=== PATIENT | female | born 1985 ===

== ENCOUNTER 2017-04-15 08:13 | Emergency (ER) | payer MEDICAID ==
--- NOTE | 2017-04-15 10:29 | OBHP ---
Datetime: 04/15/2017 08:54 IP Adm Impression: Term, intrauterine ; No Active Labor IP Admit Plan: Observation/Evaluation; Discharge home Admit Comment, IP Provider: CC: ctx HPI: 31 YO @ 39wks (EDC 04/22) presents to [facility] for ctx. Pt states that she has felt increase ctx since Sunday but this morning around 2AM her ctx became more intense and more frequent. Pt rates her pain as a 4/10. Last sexual activity was 48 hrs ago, no LOF, good movement and no VB. Yony es n/v/d/c, fevers, chills, chest pain, dyspnea, headaches. MD: [facility]: denies hx of STIs, normal thus far-no complications PMH: denies SurgH: denies FH: denies SH: lives with partner, denies ETOH, Smoking and illict drug use Allergies: NKDA Meds: PNV U/S (02/2017): breech, Bedside sonogram today - Vertex presentation PE Vitals: wnl GEN: NAD HEENT: EOMI Cardio: S1S2 no murmurs Resp: vesicular breathing b/l Abdomen: gravid, NT Ext: no edema Vag Ex: /-3 Bedside u/s: baby is vertex FM: 130, ctx Q4-7 mins A/P: 31 YO @ 39.0wks IUP presents with early labor. HIV neg, RPR neg, HepB neg, rubella immune, G/C neg, GBS neg. -will continue monitor -reasess in 1hr to see labor progress Pt seen and re-evaluated again 1hr alter, ctx are spaced apart curretly Q6-9 mins and pain is stab le at 4/10. Pt was re-examined, cervix remains high, poterior and still /-3. Baby is moving well, and strip is reactive. Will d/c home with labor precations. Pt has follow up with MD on 04/17/17. Pt understands and agrees with plan. Pt seen and examined with attending Dr. Jarret Barnes, PGY I Pt was seen and examined with resident and I agree with the above. Pelvic Type - PN: Adequate Extremities - PN: Normal Abdomen - PN: Normal Back - PN: Not Done Breast - PN: Not Done Lungs - PN: Normal Heart - PN: Normal Thyroid - PN: Not Done Neurologic - PN: Normal HEENT - PN: Normal General - PN: Normal Presentation-Admit: Vertex FHR - Baseline A Provider: 130 Pool Provider: Negative EGA AdmitDate IP: 39.0 Vital Signs Provider: Reviewed; Within Normal Limits IP Chief Complaint: Uterine contractions; Maternal discomfort NICHD Variability Prov Fetus A: Moderate 6-25bpm NICHD Accel Fetus A IP Provider: 15X15 FHR Category Provider Fetus A: Category I Dilatation, Provider: 1 Effacement, Provider: 70 Station, Provider: -3 Genitourinary Exam: Normal DTRs - PN: Not Done
[2017-04-15 14:38] VITALS: BP 109/64; PULSE 71; O2SAT 99
== END 2017-04-15 10:00 | disposition home or self-care (01) ==
LOC: H.EROB2 08:13 → H.L&D 08:34 → H.EROB2 10:00
DX: O47.1 False labor at or after 37 completed weeks of gestation (principal); Z3A.39 39 weeks gestation of pregnancy; O26.93 Pregnancy related conditions, unspecified, third trimester; R10.2 Pelvic and perineal pain

== ENCOUNTER 2017-04-15 15:48 | Inpatient (IN) | payer MEDICAID ==
[2017-04-15 16:08] VITALS: BMI 28.1
[2017-04-15] MEDS ORDERED: Oxytocin 30 units/LR 500ML 30 U/500 ML BAG IV ONE (16:09)
[2017-04-15] MEDS ORDERED: Lactated Ringer's 1,000 ML IV SCH ×2 (16:15)
[2017-04-15 16:37] LABS: BASO % 0.5 % (0.0-2.0); EOS % 0.4 % (0.0-4.0); LYMPH # 2.2 K/uL (1.0-4.3); LYMPH % 24.8 % (20.0-40.0); MEAN CELL VOLUME 90.2 fl (81.0-99.0); MEAN CORPUSCULAR HEMOGLOBIN 30.5 pg (27.0-31.0); MEAN CORPUSCULAR HGB CONC 33.8 g/dL (33.0-37.0); MEAN PLATELET VOLUME 10.5 fl (7.2-11.7); MONO # 0.9 K/uL (0.0-0.8); MONO % 10.6 % (0.0-10.0); NEUT # 5.6 K/uL (1.8-7.0); NEUT % 63.7 % (50.0-75.0); NRBC % 0.2 % (0.0-0.0); RBC 4.26 Mil/uL (3.80-5.20); RED CELL DISTRIBUTION WIDTH 13.9 % (11.5-14.5); WHITE BLOOD COUNT 8.7 K/uL (4.8-10.8)
[2017-04-15] MEDS ORDERED: Lidocaine 1% Inj (20ml) ONE (16:49)
[2017-04-15] MEDS ORDERED: Oxycodone/Acetaminophen 5/325 mg Tab PO PRN ×4 (16:59→20:13)
[2017-04-15] MEDS ORDERED: Benzocaine/Menthol SPRAY TOP PRN ×2 (16:59→20:13)
--- NOTE | 2017-04-15 17:26 | OBADHP ---
Datetime: 04/15/2017 16:10 Admit Comment, IP Provider: CC: ctx HPI: 31 YO @ 39wks (EDC 04/22) presents to [facility] for ctx. Pt was seen this AM, and states that since she d/c from the hospital her ctx worsened, became more painful and more frequent. Ctx are curr ently 1010 in intensity. Last sexual activity was 48 hrs ago, no LOF, good movement and no VB. Denies n/v/d/c, fevers, chills, chest pain, dyspnea, headaches. MD: [facility]: denies hx of STIs, normal thus far-no complications PMH: denies SurgH: denies FH: denies SH: lives with partner, denies ETOH, Smoking and illict drug use Allergies: NKDA Meds: PNV U/S (02/2017): breech Bedside sonogram today - Vertex presentation PE Vitals: wnl GEN: NAD HEENT: EOMI Cardio: S1S2 no murmurs Resp: vesicular breathing b/l Abdomen: gravid, NT Ext: no edema Vag Ex: Bedside u/s: baby is vertex FM: 145, reactive A/P: 31 YO @ 39.0wks IUP presents with active labor. HIV neg, RPR neg, HepB neg, rubella immune, G/C neg, GBS neg. -will admit pt -start labor protocal -IV fluids -NPO -continue FM Pt seen and examined with attending Dr. Jarret Barnes, PGY I Attending Note: Pt was examined with resident and I agree with the above. Pelvic Type - PN: Adequate Extremities - PN: Normal Abdomen - PN: Normal Back - PN: Not Done Breast - PN: Not Done Lungs - PN: Normal Heart - PN: Normal Thyroid - PN: Not Done Neurologic - PN: Normal HEENT - PN: Normal General - PN: Normal FHR - Baseline A Provider: 140 Membranes, Provider: Ruptured Vital Signs Provider: Reviewed; Within Normal Limits IP Chief Complaint: Uterine contractions; Maternal discomfort NICHD Variability Prov Fetus A: Moderate 6-25bpm NICHD Accel Fetus A IP Provider: 15X15 FHR Category Provider Fetus A: Category I Dilatation, Provider: 7 Effacement, Provider: 100 Station, Provider: 0 Genitourinary Exam: Normal DTRs - PN: Not Done EGA AdmitDate IP: 39.0 IP Adm Impression: Term, intrauterine ; Active labor IP Admit Plan: Admit to unit; Initiate labor protocol Datetime: 04/15/2017 08:54 Presentation-Admit: Vertex Pool Provider: Negative
[2017-04-16 06:54] LABS: BASO # 0.1 K/uL (0.0-0.2); BASO % 0.5 % (0.0-2.0); EOS % 0.2 % (0.0-4.0); HEMOGLOBIN 11.6 g/dL (12.0-16.0); LYMPH # 1.7 K/uL (1.0-4.3); LYMPH % 15.4 % (20.0-40.0); MEAN CELL VOLUME 90.5 fl (81.0-99.0); MEAN CORPUSCULAR HEMOGLOBIN 30.8 pg (27.0-31.0); MEAN CORPUSCULAR HGB CONC 34.1 g/dL (33.0-37.0); MEAN PLATELET VOLUME 9.9 fl (7.2-11.7); MONO # 0.8 K/uL (0.0-0.8); NEUT # 8.4 K/uL (1.8-7.0); NEUT % 76.9 % (50.0-75.0); NRBC % 0.2 % (0.0-0.0); RBC 3.78 Mil/uL (3.80-5.20); RED CELL DISTRIBUTION WIDTH 13.9 % (11.5-14.5); WHITE BLOOD COUNT 10.9 K/uL (4.8-10.8)
--- NOTE | 2017-04-16 10:21 | OBDS ---
DELIVERY PERSONNEL Delivery Doctor: Cecil Wheat MD Aged Or Disabled Carer: Irina Ramsay RN [email or web address] Resident: dr arroyo MATERNAL INFORMATION Delivery Anesthesia: None Medications in Delivery: pitocin 30 units after placenta delivery Estimated Blood Loss (ml): 150 Placenta Cultured: No Maternal Complications: None Provider Comments: 31 YO @ 39wks IUP presented in active labor. Pt underwent an uncomplicated S NVD of a viable male . Baby was delivered in a controlled environment, head was delivered first , cord x 1. Baby was suctioned, cords were clamped and cut. Baby with weight of 3215g, scores o f 9 and 9. 1st degree periurethral lac was noted and repaired with 2 - 0 chromic. EBL was 150ml. Moth er and baby tolerated the procedure well. Talita Cameron, PGY I LABOR SUMMARY EDC: 04/22/2017 00:00 No. Babies in Womb: 0 Attempted: No Labor Anesthesia: None LABOR INFORMATION Onset of Labor: 04/14/2017 02:00 Complete Dilatation: 04/15/2017 16:30 Group B Beta Strep: Negative Steroids Given: None MEMBRANES Membranes Rupture Method: Spontaneous Rupture of Membranes: 04/15/2017 16:10 Length of Rupture (hrs): 0.50 Amniotic Fluid Color: Clear Amniotic Fluid Amount: Moderate STAGES OF LABOR Stage 1 hrs: 37 Stage 1 min: 30 Stage 2 hrs: 0 Stage 2 min: 10 Stage 3 hrs: 0 Stage 3 min: 6 Total Time in Labor hrs: 37 Total Time in Labor min: 46 VAGINAL DELIVERY Episiotomy: None Laceration Extension: First Degree Laceration Type: Periurethral Laceration Repair: Yes Initial Vag Sponge Count: 5 Final Vag Sponge Count: 5 Initial Vag Sharps Count: 1 Final Vag Sharps Count: 1 Sponge Count Correct: Yes Sharps Count Correct: Yes BABY A INFORMATION Delivery Date/Time: 04/15/2017 16:40 Method of Delivery: Vaginal Born in Route : Yes : N/A Forceps: N/A Vacuum Extraction: N/A Shoulder Dystocia : No SHOULDER DYSTOCIA BABY A Delivery Date/Time: 04/15/2017 16:40 PRESENTATION/POSITION BABY A Presentation: Cephalic Cephalic Presentation: Vertex Vertex Position: Left Occipital Anterior Breech Presentation: N/A PLACENTA INFORMATION BABY A Placenta Delivery Time : 04/15/2017 16:46 Placenta Method of Delivery: Spontaneous Placenta Status: Delivered SCORES BABY A Heart Rate 1 min: >100 bpm Resp Effort 1 min: Good Cry Reflex Irritability 1 min: Cough or Sneeze or Pulls Away Muscle Tone 1 min: Active Motion Color 1 min: Body Fleming-Neon, Extremities Blue Resuscitation Effort 1 min: Tactile Stimulation SCORE 1 MIN: 9 Heart Rate 5 min: >100 bpm Resp Effort 5 min: Good Cry Reflex Irritability 5 min: Cough or Sneeze or Pulls Away Muscle Tone 5 min: Active Motion Color 5 min: Body Fleming-Neon, Extremities Blue SCORE 5 MIN: 9 Heart Rate 10 min: >100 bpm Resp Effort 10 min: Good Cry Reflex Irritability 10 min: Cough or Sneeze or Pulls Away Muscle Tone 10 min: Active Motion Color 10 min: Completely Fleming-Neon SCORE 10 MIN: 10 INFANT INFORMATION BABY A Gestational Age at Delivery: 39.0 Gestational Status: Term Infant Outcome : Liveborn Condition : Stable Infant Sex: Male IDENTIFICATION/MEDS BABY A ID Band Number: [id number] ID Band Location: Left Leg; Left Arm WEIGHT/LENGTH BABY A Infant Birthweight (gms): 3215 Infant Weight (lb): 7 Infant Weight (oz): 1 CORD INFORMATION BABY A No. Cord Vessels: 3 Nuchal Cord : Around Neck x1, Loose Nuchal Cord Other: no True Knot: no Cord pH Baby Arterial: no Infant Cord pH Baby Venous: no Cord Blood Taken: Yes Banking/Donate Info: no Infant Suction: Mouth; Nose ASSESSMENT BABY A Complications: None Physical Findings at Delivery: Within Normal Limits Respirations: Appears Normal Bsa Officer/ALS Called : Yes Care By: dr jung / lucien willingham rnc Transferred To: Remains with Mother
--- NOTE | 2017-04-16 10:51 | OBPPN ---
Datetime: 04/16/2017 06:21 PP Pain Prov: Within normal limits PP Nausea Prov: Denies PP Flatus Prov: Yes PP BM Prov: No PP Breasts Prov: Normal PP Heart Prov: Normal PP Lungs Prov: Normal PP Abdomen/Uterus Prov: Normal PP Lochia Prov: Normal PP CVA Tenderness Prov: Normal PP Extremities Prov: Normal PP Impression Prov: Normal progression PP Plan Prov: Continue present management; consult PP Progress Note Prov: PPD 1 31 y/o female now on PPD 1 seen and examined at bedside this morning. No overnight events. Re ports pain is controlled with pain medications. Pt reports passing gas per rectum but no BM yet. Void ing freely w/o blood noted. Ambulating well w/o dizziness. Lochia is similar to menses volume. Pt is the baby w/o difficulty. Denies nausea, vomiting, fever, chills, chest pain or calf сергей n. Parents do not desire circumcision for the baby. Physical Exam: General: A_O, resting comfortably in bed, NAD HEENT: oral mucosa moist. Lungs: CTA B/L, no wheezing, rhonchi or rales CVS: RRR, S1, S2 ABD: ND, +BS, firm fundus @ umbilical level. Soft, appropriate TTP. EXT: no edema, negative Michael's sign, Neuro/psych: AAOX3. Assessment: 31 y/o female now doing well on PPD 1 Plan: OOB w/ caution Regular diet Percocet and Ibuprofen for pain management Colace 100 mg po bid for constipation consults for Encourage and ambulation Anticipate discharge tomorrow Sultan Last, pgy-1 Case d/w on-call OB hospitalist The attending addendum: Patient seen and examined by me agree with above assessment and plan. Vital Signs Provider PP: Reviewed
--- NOTE | 2017-04-17 10:46 | OBDCSUM ---
Datetime: 04/17/2017 06:54 Discharged to, Provider: Home Follow up at, Provider: your doctor Disch Instr Activity: Normal activity; May be up to bathroom; May be up for meals; May Shower Disch Instr Diet: Regular Discharge Instructions, Provider: Routine instructions given Discharge Diagnosis, Provider: Term Delivered Discharge Time: 04/17/2017 11:00 Follow up in weeks, Provider: in 6 weeks Disch Referrals: None Contraception discussed, Prov: Yes Disch Activity Restrictions: No lifting; Minimize stair-climbing; No sexual activity; Nothing in vag mouna - [place], tampons, douche Discharge Comment, Provider: Discharge to home today Take vitamin daily take ibuprofen 600 mg 1 tab every 6 hours as needed for pain Encourage . Ambulation with caution,nothing per vaginal, no heavy lifting, if excessive bleeding or fever w/o relief from pain medications go to ED. Follow up at your clinic in 6 weeks for visit. OB Hospitalist on-call. On rounds this morning, I saw patient and agree with note. MAHNDO Contraception after Delivery: Depo-Provera
--- NOTE | 2017-04-17 10:46 | OBPPN ---
Datetime: 04/17/2017 06:53 PP Pain Prov: Within normal limits PP Nausea Prov: Denies PP Flatus Prov: Yes PP BM Prov: No PP Heart Prov: Normal PP Lungs Prov: Normal PP Abdomen/Uterus Prov: Normal PP Lochia Prov: Normal PP CVA Tenderness Prov: Normal PP Extremities Prov: Normal PP Impression Prov: Normal progression PP Plan Prov: Discharge PP Progress Note Prov: PPD 2 31 y/o female now on PPD 2 seen and examined at bedside this morning. No overnight events. Re ports pain is controlled with pain medications. Pt reports +flatus but no BM yet. Voiding freely w/o blood noted. Ambulating well w/o dizziness. Lochia is similar to menses volume. Pt is the baby w/o difficulty. Denies nausea, vomiting, fever, chills, chest pain or calf pain. Physical Exam: General: A_O, resting comfortably in bed, NAD HEENT: oral mucosa moist. Lungs: CTA B/L, no wheezing, rhonchi or rales CVS: RRR, S1, S2 ABD: ND, +BS, firm fundus @ umbilical level. Soft, appropriate TTP. EXT: no edema, negative Michael's sign, Neuro/psych: AAOX3. Assessment: 31 y/o female now doing well on PPD 2 Plan: Discharge to home today PNV 1 PO qdaily Ibuprofen 600 mg 1 tab po prn q6 if moderate/severe pain Encourage . Ambulation with caution,nothing per vaginal, no heavy lifting, if excessive bleeding or fever w/o relief from pain medication go to ED. Follow up with your doctor in 6 weeks for visit. Sultan Last, PGY-1 Case d/w on-call OB Hospitalist OB Hospitalist on-call. On rounds this morning, I saw patient and agree with note. MATTHEW Vital Signs Provider PP: Reviewed
[2017-04-17 17:55] VITALS: BP 121/75; PULSE 68; RESP 20; TEMP 98.8; O2SAT 76
== END 2017-04-17 13:00 | disposition home or self-care (01) | DRG 373 ==
LOC: H.EROB2 15:48 → H.L&D 16:11 → H.OB/GYN 20:17
PROVIDERS: ADMIT Obstetrics & Gynecology; ATTEND Obstetrics & Gynecology
PROC: 10E0XZZ Delivery of Products of Conception, External Approach (ICD-10-PCS; principal; 2017-04-15)
PROC: 0HQ9XZZ Repair Perineum Skin, External Approach (ICD-10-PCS; 2017-04-15)
DX: O69.81X0 Labor and delivery complicated by cord around neck, without compression, not applicable or unspecified (principal); O70.0 First degree perineal laceration during delivery; O71.82 Other specified trauma to perineum and vulva; K59.00 Constipation, unspecified; Z37.0 Single live birth; Z3A.39 39 weeks gestation of pregnancy

== ENCOUNTER 2018-01-02 15:11 | Emergency (ER) | payer MEDICAID ==
[2018-01-02 15:11] VITALS: BMI 28.1
[2018-01-02] MEDS ORDERED: Sodium Chloride 0.9% 1,000 ML IV STA ×2 (16:33→23:53)
[2018-01-02] MEDS ORDERED: Iohexol 240 (50 ml) PO ONE (16:34)
--- NOTE | 2018-01-02 16:42 | ED PDOC ---
HPI: Abdomen Time Seen by Provider: 01/02/18 16:08 Chief Complaint (Nursing): Abdominal Pain Chief Complaint (Provider): Abdominal Pain History Per: Patient History/Exam Limitations: no limitations Onset/Duration Of Symptoms: Days (x1 day) Current Symptoms Are (Timing): Still Present Location Of Pain/Discomfort: RLQ Associated Symptoms: Fever Additional Complaint(s): Carina Barnes is a 32 year old female with no past medical history, who presents to the emergency department complaining of having abdominal pain radiating to the right lower back, associated with fever, onset x1 day ago. Patient states she has not taken any medication for the pain. PMD: No provider Past Medical History Reviewed: Historical Data, Nursing Documentation, Vital Signs Vital Signs: Last Vital Signs Temp 102.9 F H 01/02/18 16:08 Pulse 109 H 01/02/18 16:08 Resp 20 01/02/18 16:08 BP 120/79 01/02/18 16:08 Pulse Ox 98 01/02/18 16:08 - Medical History PMH: No Chronic Diseases - Surgical History Surgical History: No Surg Hx - Family History Family History: States: Unknown Family Hx - Social History Current smoker - smoking cessation education provided: No Alcohol: None Drugs: Denies - Immunization History Hx Tetanus Toxoid Vaccination: No Hx Influenza Vaccination: No Hx Pneumococcal Vaccination: No - Home Medications Home Medications: Ambulatory Orders Medication Instructions Recorded Ibuprofen [Motrin Tab] 600 mg PO Q6 PRN #30 tab 04/17/17 Pnv No.95/Ferrous Fum/Folic AC 1 each PO DAILY #30 tablet 04/17/17 [ Vitamins Tablet] - Allergies Allergies/Adverse Reactions: Allergies Allergy/AdvReac Type Severity Reaction Status Date / Time No Known Allergies Allergy Verified 04/15/17 16:07 Review of Systems ROS Statement: Except As Marked, All Systems Reviewed And Found Negative Constitutional: Positive for: Fever Gastrointestinal: Positive for: Abdominal Pain Musculoskeletal: Positive for: Back Pain Physical Exam - Reviewed Nursing Documentation Reviewed: Yes Vital Signs Reviewed: Yes - Physical Exam Appears: Positive for: Non-toxic, No Acute Distress Head Exam: Positive for: ATRAUMATIC, NORMOCEPHALIC Skin: Positive for: Normal Color, Warm Respiratory: Negative for: Respiratory Distress Gastrointestinal/Abdominal: Positive for: Tenderness (RLQ tenderness ) Neurologic/Psych: Positive for: Alert, Oriented - Laboratory Results Result Diagrams: 01/02/18 17:03 01/02/18 17:03 - ECG O2 Sat by Pulse Oximetry: 98 (RA) Pulse Ox Interpretation: Normal Medical Decision Making Medical Decision Making: Time: 16:33 Plan: --VBG --CMP --Cbc with differential --Tylenol 650 mg po --Sodium chloride 1,000 ml --Blood culture --Ct abd pelvis PO and IV contrast --ED urine --ED urine dipstick --Omnipaque [address] FINDINGS: LUNG BASES: The lung bases appear clear. No pleural effusions are seen. LIVER: Unremarkable. GALLBLADDER AND BILE DUCTS: The gallbladder appears within normal limits. No radioopaque gallstones are seen. No biliary ductal dilatation is evident. PANCREAS: Unremarkable. SPLEEN: Unremarkable. ADRENAL GLANDS: Unremarkable. KIDNEYS, URETERS, AND BLADDER: The kidneys appear within normal limits. There is no hydronephrosis or hydroureter. No urinary calculi are seen. The uterus is enlarged and lobulated in contour and heterogeneous in attenuation. STOMACH AND BOWEL: Unremarkable appearance of the stomach and bowel. No evidence of bowel obstruction. No evidence suggesting enteritis or colitis. APPENDIX: No evidence of acute appendicitis on CT examination. PERITONEUM: Small amount of free fluid seen within the lower pelvis. LYMPH NODES: No lymphadenopathy is evident. VASCULATURE: No evidence of abdominal aortic aneurysm. BONES: No aggressive appearing osseous lesion. No acute osseous pathology evident. IMPRESSION: Enlarged heterogeneous appearance to the uterus. Small amount of free fluid within the pelvis. Clinical correlation and correlation with ultrasound examination of the pelvis is recommended. Rocephin order in ER for UTI/pyelonephrosis. US ordered. Endorsed pending US of the pelvis to Jorge Luis Gerber PA-C Scribe Attestation: Documented by Brayan Velez, acting as a scribe for Lea Moreno PA-C Provider Scribe Attestation: All medical record entries made by the Scribe were at my direction and personally dictated by me. I have reviewed the chart and agree that the record accurately reflects my personal performance of the history, physical exam, medical decision making, and the department course for this patient. I have also personally directed, reviewed, and agree with the discharge instructions and disposition. Disposition - Clinical Impression Clinical Impression: UTI (urinary tract infection) - Patient ED Disposition Is Patient to be Admitted: Transfer of Care - Disposition Disposition: Transfer of Care Disposition Time: 23:00 Condition: STABLE Instructions: Kidney Infection, Urinary Tract Infections in Adults Forms: [employer] (Panamanian)
[2018-01-02 17:16] LABS: BASO % 0.4 % (0.0-2.0); HEMOGLOBIN 14.9 g/dL (12.0-16.0); LYMPH # 1.4 K/uL (1.0-4.3); MEAN CELL VOLUME 85.8 fl (81.0-99.0); MEAN CORPUSCULAR HEMOGLOBIN 28.8 pg (27.0-31.0); MEAN CORPUSCULAR HGB CONC 33.6 g/dL (33.0-37.0); MEAN PLATELET VOLUME 8.8 fl (7.2-11.7); MONO # 1.1 K/uL (0.0-0.8); MONO % 10.3 % (0.0-10.0); NEUT # 8.3 K/uL (1.8-7.0); NEUT % 76.3 % (50.0-75.0); NRBC % 0.1 % (0.0-0.0); RBC 5.18 Mil/uL (3.80-5.20); RED CELL DISTRIBUTION WIDTH 13.6 % (11.5-14.5); WHITE BLOOD COUNT 10.8 K/uL (4.8-10.8)
[2018-01-02] MEDS ORDERED: Iohexol 240 (50 ml) ONE (17:26)
[2018-01-02 17:35] LABS: ALB/GLOB RATIO 1.1 (1.0-2.1); ALBUMIN 4.5 g/dL (3.5-5.0); ALT/SGPT 29 U/L (9-52); AST/SGOT 27 U/L (14-36); BLOOD UREA NITROGEN 9 mg/dl (7-17); CALCIUM 9.8 mg/dL (8.4-10.2); GFR NON-AFRICAN AMERICAN > 60
[2018-01-02 17:39] LABS: SQUAMOUS EPITHIAL 2 /hpf (0-5); URINE AMORPHOUS SEDIMENT RARE /ul (<OCC); URINE BACTERIA FEW (<OCC); URINE BILIRUBIN NEGATIVE (NEGATIVE); URINE BLOOD LARGE (NEGATIVE); URINE CLARITY CLOUDY (Clear); URINE COLOR YELLOW (YELLOW); URINE GLUCOSE (UA) NEG (Normal); URINE LEUKOCYTE ESTERASE LARGE Leu/uL (Negative); URINE PROTEIN 30 mg/dL (NEGATIVE); URINE UROBILINOGEN 0.2-1.0 mg/dL (0.2-1.0); WBC CLUMPS FEW /hpf
[2018-01-02 17:49] LABS: VENOUS BLOOD GAS PCO2 48 mmHg (40-60); VENOUS BLOOD GAS PO2 22 mm/Hg (30-55)
[2018-01-02] MEDS ORDERED: Iohexol 300 100 ML IJ ONE (19:21)
[2018-01-02] MEDS ORDERED: Sodium Chloride 0.9% 50 ML IV ONE (19:21)
[2018-01-02] MEDS ORDERED: cefTRIAXone (Rocephin) 1 gm Inj ONE (21:40)
--- NOTE | 2018-01-02 23:52 | ED PDOC ---
- Laboratory Results Result Diagrams: 01/02/18 17:03 01/02/18 17:03 - ECG O2 Sat by Pulse Oximetry: 98 - Progress ED Course And Treament: 2300 Signed out to me pending US results. 2349 Repeat temp: 102.2 Tylenol 975mg PO, IV NS Bolus ordered. 0130 Repeat temp: 99.9. Pt. informed of US results. States she is feeling better. Abd soft and non-tender. No CVA tenderness b/l. Return precautions given. Disposition - Clinical Impression Clinical Impression: UTI (urinary tract infection) - POA Present On Arrival: None - Disposition Referrals: [facility] [Outside] [facility] [Outside] Disposition: Routine/Home Disposition Time: 00:42 Condition: IMPROVED Additional Instructions: FOLLOW UP WITH [facility] FOR FURTHER EVALUATION RETURN TO ED IMMEDIATELY IF SYMPTOMS WORSEN [place], thank you for letting us take care of you today. Your provider was Mark Whatley MD and you were treated for BACK/ABD PAIN. The emergency medical care you received today was directed at your acute symptoms. If you were prescribed any medication, please fill it and take as directed. It may take several days for your symptoms to resolve. Return to the Emergency Department if your symptoms worsen, do not improve, or if you have any other problems. Please contact your doctor or call one of the physicians/clinics you have been referred to that are listed on the Patient Visit Information form that is included in your discharge packet. Bring any paperwork you were given at discharge with you along with any medications you are taking to your follow up visit. Our treatment cannot replace ongoing medical care by a primary care provider outside of the emergency department. Thank you for allowing the [facility] team to be part of your care today. If you had an X-Ray or CT scan: A Radiologist will review the ED reading if any change in treatment is needed we will contact you. If you had a blood, urine, or wound culture: It will take several days for the results, if any change in treatment is needed we will contact you. If you had an STI test: It will take 48 hours for the results. Please call after 1 week if you have not heard back. Prescriptions: RX: Ciprofloxacin [Cipro] 500 mg PO BID #14 tab Instructions: Urinary Tract Infections in Adults Forms: [employer] (Malaysian) Print Language: TURKMEN
[2018-01-03 01:41] VITALS: BP 110/55; PULSE 104; RESP 18; TEMP 99.9
[2018-01-03 02:52] VITALS: O2SAT 98
--- NOTE | 2018-01-03 11:21 | CT ---
Date of service: 01/02/2018 PROCEDURE: CT Abdomen and Pelvis with contrast HISTORY: RLQ pain, fever, nausea COMPARISON: None. TECHNIQUE: Contrast dose: 90 mL of Omnipaque 300 intravenously. Axial and reformatted coronal and sagittal CT images of the abdomen and pelvis were obtained after IV and oral contrast administration. Radiation dose: Total exam DLP = 542.88 mGy-cm. This CT exam was performed using one or more of the following dose reduction techniques: Automated exposure control, adjustment of the mA and/or kV according to patient size, and/or use of iterative reconstruction technique. FINDINGS: LOWER THORAX: Unremarkable. LIVER: Unremarkable. No gross lesion or ductal dilatation. GALLBLADDER AND BILE DUCTS: No evidence of acute cholecystitis or biliary obstruction. PANCREAS: Unremarkable. No gross lesion or ductal dilatation. SPLEEN: Unremarkable. ADRENALS: Unremarkable. No mass. KIDNEYS AND URETERS: There is patchy enhancement of the right kidney suspicious for pyelonephritis. Mild thickening of the right ureter wall noted. The left kidney is grossly unremarkable. No evidence of significant hydronephrosis or obstructing calculus. VASCULATURE: Unremarkable. No aortic aneurysm. No aortic atherosclerotic calcification or mural plaque present. BOWEL: Unremarkable. No obstruction. No gross mural thickening. APPENDIX: No evidence of appendicitis. PERITONEUM: Unremarkable. No free fluid. No free air. LYMPH NODES: Unremarkable. No enlarged lymph nodes. BLADDER: Unremarkable. REPRODUCTIVE: The uterus is a heterogeneous prominent in size. BONES: No acute fracture. OTHER FINDINGS: None. IMPRESSION: Patchy enhancement of the right renal cortex suspicious for pyelonephritis. Please correlate clinically. Heterogeneous prominent size uterus. If indicated further assessment by ultrasound of the pelvis may be obtained. Preliminary report was submitted by [facility] Radiology contains concordant findings.
--- NOTE | 2018-01-03 11:22 | US ---
Date of service: 01/02/2018 HISTORY: dysuria, abnormal CT COMPARISON: None available. TECHNIQUE: Transabdominal FINDINGS: UTERUS: Measures 10.4 x 3.9 x 5.9 cm. Normal in size and appearance. No fibroid or other mass lesion seen. ENDOMETRIUM: Measures mm in diameter. 6 CERVIX: No cervical abnormality identified. RIGHT OVARY: Measures 5.7 x 2.6 x 2.6 cm. No solid mass. Normal flow. LEFT OVARY: Measures 3.3 x 1.9 x 2.0 cm. No solid mass. Normal flow. FREE FLUID: No significant free fluid noted. OTHER FINDINGS: None. IMPRESSION: Unremarkable pelvic ultrasound examination. The preliminary findings for this examination were reported by [facility] Radiology at 12:29 a.m. on 01/03/2018. There is concurrence of this report with the preliminary findings.
== END 2018-01-03 01:39 | disposition home or self-care (01) ==
LOC: H.ER 15:11
DX: N39.0 Urinary tract infection, site not specified (principal)
CPT/HCPCS: 74177; 76856; 80053; 81003; 81025; 82803; 85025; 87040; 87086; 87181; 96360; 96361; 96365; 96375; 99284; J0696; J2270; J2405; J7030; Q9966; Q9967